=== PATIENT | female | born 1935 | race Caucasian/White ===

== ENCOUNTER 2017-11-12 11:17 | Emergency (ER) | payer MEDICARE, OTHER ==
--- NOTE | 2017-11-12 12:22 | ED Physician Documentation ---
Fall - HISTORIAN Historian: patient, child - HPI Stated Complaint: fall on face Chief Complaint: Fall Additional Information: pt walking across floor w/o cane fell on carpeted floor w/skinned face and lt hip pain approx 1100hrs medic alert summoned ems and next door daughter arrived approx 15 min later pt found very slightly confused face down on floor and part to lt side-denied loc thinks tripped-had been carrying clothes-clean out closet. tracey says pt able to raise self to sitting posn w/minimal help--haS fallen prev dt at fib-has monitor which transmits to pts doctor-sinus rhythm now. Ptsays now only pain face and lt hip. denies head neck and back pain. she also moves all 4 ext w/o sig difficulty Onset: hours (1100) Where: home Context: tripped r: moderate Associated Symptoms:: no loss of consciousness, dazed Location of Pain/Injury: face, lower extremity, hip (lt) Injury to Left Extremity: hip - ROS CONST: no problems. denies: recent illness (yesterday pt and spent day at [facility] WENT UP AND DOWN STAIRS W/O DIFFICULTY-USUALLY WALKS W/CANE) EYES/ENT: none CVS/RESP: none GI/: problems urinating. denies: nausea, vomiting - PAST HX Past History: A-Fib, other (CVA early dementia-but answers questions very appropriately... possible hypertension cva copd ) Allergies/Adverse Reactions: Allergies Allergy/AdvReac Type Severity Reaction Status Date / Time No Known Allergies Allergy Verified 11/12/17 11:47 Home Medications: Ambulatory Orders Medication Instructions Recorded Albuterol Sulfate [ProAir 2 puff IN DAILY PRN 11/12/17 RespiClick] Alprazolam [Xanax] 0.25 mg PO PRN PRN 11/12/17 Aspirin [Adult Low Dose Aspirin EC] 81 mg PO DAILY 11/12/17 Bupropion HCl [Wellbutrin Xl] 150 mg PO DAILY 11/12/17 Cetirizine HCl [Zyrtec] 10 mg PO PRN PRN 11/12/17 Esomeprazole Magnesium [Nexium] 40 mg PO DAILY 11/12/17 Fluticasone/Salmeterol [Advair 2 puff IN DAILY PRN 11/12/17 250-50 Diskus] Lisinopril [Zestril] 10 mg PO HS 11/12/17 Melatonin [Melatonin] 5 mg PO HS PRN 11/12/17 Memantine HCl [Namenda] 10 mg PO BID 11/12/17 Potassium Chloride [Klor-Con 10] 10 meq PO TID 11/12/17 Sertraline HCl [Zoloft] 150 mg PO DAILY 11/12/17 Sotalol HCl [Sotalol] 80 mg PO BID 11/12/17 - SOCIAL HX Smoking History: non-smoker Alcohol Use: none Drug Use: none - FAMILY HX Family History: no significant history - VITAL SIGNS Vital Signs: Vital Signs Temp Pulse Resp BP Pulse Ox 99.1 F 72 18 169/79 95 11/12/17 11:17 11/12/17 11:17 11/12/17 11:17 11/12/17 11:17 11/12/17 11:17 - REVIEWED ASSESSMENTS Nursing Assessment Reviewed: Yes Vitals Reviewed: Yes ED Results Lab/Radiology - Orders Orders: ED Orders Category Date Time Status CT BRAIN W/O CONTRAST Stat Exams 11/12/17 Taken RT HIP 2VIEW COMPLETE [RAD] Stat Exams 11/12/17 Ordered CBC/PLATELET/DIFF Routine Lab 11/12/17 Ordered CMP Routine Lab 11/12/17 Ordered PT-INR Routine Lab 11/12/17 Ordered URINALYSIS Routine Lab 11/12/17 Ordered EKG WITH COMPARISON Stat Ther 11/12/17 Ordered Fall Physical Exam - Physical Exam General Appearance: mild distress Head: trauma (facial abrasions contusions) Neck: non-tender, painless ROM Eye: UGO, EOMI ENT: nml external inspection Resp/CVS: chest non-tender, breath sounds nml, no resp. distress, heart sounds nml, rib tenderness Abdomen: soft, non-tender, other (lt hip sl tender to palpation) Neuro: oriented x3, sensation nml, motor nml, mood/affect nml, dedicated driver nml, depressed mood/affect, other (neg pronator drift - pushes equally and appropriately w/ both feet). No: disoriented, facial asymmetry - [place] Coma Score Eyes Open: Spontaneous Speech: Oriented Motor: Obeys Commands Discharge Clincal Impression: fall w/ abrasions contusions face, no mallory arrythmia-no concussion Referrals: Berny Hackett, [Primary Care Provider] - 2 Days Comments: daughter will stay w/pt today till obviousely stable Condition: Good Disposition: 01 HOME, SELF-CARE Decision to Admit: NO Decision Time: 14:11
[2017-11-12 12:45] LABS: BASOPHILS % 0.4 (0.0-1.5); EOSINOPHILS % 0.7 % (0.0-6.8); MEAN CORPUSCULAR HEMOGLOBIN 30.9 pg (28.0-34.0); MEAN CORPUSCULAR VOLUME 89.3 fl (80.0-100.0); MONOCYTES % 7.5 % (0.0-11.0); NEUTROPHILS # 3.7 # k/uL (1.4-7.7)
[2017-11-12 12:58] LABS: eGFR (African) > 60; eGFR (Non-African) > 60
--- NOTE | 2017-11-12 13:44 | Diagnostic Imaging Report ---
HANNAH HOSKINS [facility] [address] [facility] [address] [place], [place]. [address] Report Submission Date: Nov 12, 2017 12:24:24 PM BREAD PAN GREASER Patient Study Name: MARILIN PANCHAL Date: Nov 12, 2017 11:53:31 AM BREAD PAN GREASER Modality Type: CT\SR Gender: F Description: CT HEAD W/O CONTRAST : 31 Institution: [facility] Physician: HANNAH HOSKINS Examination: CT head without contrast History: CLOSED HEAD INJURY FROM FALL (Hx) / CLOSED HEAD INJURY, FALL (DICOM Hx ) Comparison exam: None available Technique: Noncontrast head CT protocol. Findings: Ventricles and sulci are prominent. Cerebrocerebellar parenchyma demonstrates periventricular low attenuation consistent with small vessel disease. No evidence for parenchymal hemorrhage. No evidence for mass or mass effect. No midline shift. No extra axial fluid collections. Partial visualization of the paranasal sinuses, mastoid air cells, orbits, skull and scalp without gross irregularity. Impression: Advanced age related changes. No acute parenchymal process. No hemorrhage. Correlation with older exams recommended to confirm stability of the presumed age related parenchymal changes. Electronically signed on Nov 12, 2017 12:24:24 PM BREAD PAN GREASER by: Dyllan PARKS
--- NOTE | 2017-11-12 13:47 | Diagnostic Imaging Report ---
HANNAH HOSKINS [facility] [address] [facility] [address] [address] Report Submission Date: Nov 12, 2017 12:26:47 PM V [employer] Patient Study Name: MARILIN PANCHAL Date: Nov 12, 2017 12:01:55 PM V [employer] Modality Type: DX Gender: F Description: PELVIS : 31 Institution: [facility] Physician: HANNAH HOSKINS Examination: Plain film right hip History: PAIN FROM FALL (Hx) Comparison exams: None provided Findings: 2 views of the right hip demonstrates the articular degenerative changes. Hip angulation makes visualization of the femoral neck difficult. Superior/inferior pubic rami and iliac wing without gross abnormality. Impression: Limited examination due to patient positioning. Consider obtaining CT hip to further evaluate. Electronically signed on Nov 12, 2017 12:26:47 PM V [employer] by: Dyllan PARKS
[2017-11-12 14:37] VITALS: BP 196/85
[2017-11-13 06:33] LABS: APPEARANCE,URINE CLEAR (CLEAR); COLOR,URINE YELLOW (YELLOW); OCCULT BLOOD,URINE NEGATIVE (NEGATIVE); PH URINE 7.5 (5.0 - 8.0); UROBILINOGEN URINE 0.2 Eu (0.2-1.0)
== END 2017-11-12 14:35 | disposition home or self-care (01) ==
LOC: ED 11:17
DX: S00.81XA Abrasion of other part of head, initial encounter (principal); M25.552 Pain in left hip; W18.39XA Other fall on same level, initial encounter; Y93.E2 Activity, laundry; Y92.008 Other place in unspecified non-institutional (private) residence as the place of occurrence of the external cause
CPT/HCPCS: 51701; 70450; 73502; 80053; 81002; 85025; 85610; 99283; S1016